=== PATIENT | female | born 1980 | race Caucasian/White ===

== ENCOUNTER 2020-01-06 15:30 | Outpatient (CLI) | payer OTHER, SELFPAY ==
--- NOTE | ~2020-01-06 | CT_ITS ---
EXAMINATION: CT abdomen pelvis w con INDICATION: Ventral hernia TECHNIQUE: Computed tomographic images of the abdomen and pelvis were obtained after the administrati on of 100 cc of Omnipaque 350 intravenous contrast. The dose-length product (DLP) was 1667.45 mGy-cm. Automated exposure control and iterative reconstruction technique were employed. COMPARISON: None available FINDINGS: The lung bases are clear. The heart size is normal. The liver is diffusely low in attenuati on when compared with the spleen, consistent with hepatic steatosis. The gallbladder is surgically ab sent. The spleen, pancreas, adrenal glands, and right kidney are normal. There is a 6.1 cm exophytic cyst of the left kidney. There is a large infraumbilical ventral hernia contains the distal stomach, the entire small bowel beyond the proximal jejunum, and the entire colon to the level of the distal s igmoid colon. There is no free intraperitoneal gas or evidence of bowel obstruction. No pathologicall y enlarged abdominal or pelvic lymph nodes are identified. There is mild lumbar spondylosis. IMPRESSION: 1. Large infraumbilical hernia containing part of the stomach and the bowel from the proximal jejunum through the distal sigmoid colon. 2. Diffuse hepatic steatosis. Reviewed, dictated and finalized at location A. IMPRESSION: 1. Large infraumbilical hernia containing part of the stomach and the bowel fro m the proximal jejunum through the distal sigmoid colon. 2. Diffuse hepatic steatosis.
[2020-01-06 16:03] LABS: Estimated Glomerular Filt Rate > 60
== END 2020-01-06 15:31 | disposition home or self-care (01) ==
PROVIDERS: Visit Provider Obstetrics & Gynecology
DX: K43.9 Ventral hernia without obstruction or gangrene (principal); K76.0 Fatty (change of) liver, not elsewhere classified
CPT/HCPCS: 74177; Q9967

== ENCOUNTER 2020-08-03 15:28 | Emergency (ER) | payer OTHER, SELFPAY ==
--- NOTE | ~2020-08-03 | CT_ITS ---
EXAMINATION: CTA brain carotid DATE: 08/03/2020 18:34 CDT INDICATION: Headache TECHNIQUE: Computed tomographic angiography (CTA) of the head was performed without and with 100 mL O mnipaque-350 intravenous contrast. CTA of the neck was performed with intravenous contrast. The dose- length product was 1864.36 mGy-cm. Maximum intensity projection and volume rendered 3D-reconstruction s were created by the technologist on a separate workstation. COMPARISON: CT dated 05/24/2015. FINDINGS: HEAD CT/CTA: No acute intracranial hemorrhage, infarction, mass or mass effect. No ventriculomegaly o r midline shift. Normal mars-white differentiation. Basilar cisterns are patent. Paranasal sinuses an d mastoids are pneumatized. Intracranial arteries including the internal carotid arteries, anterior, middle and posterior cerebral arteries are within normal limits without evidence for stenosis, occlus ion or aneurysm. NECK CTA: There is normal contrast opacification of the common, internal and external carotid arterie s without significant atherosclerotic change. The vertebral arteries are codominant. No evidence for significant stenosis, occlusion, dissection or aneurysm. There is a 12 mm low-density lesion right th yroid lobe. Visualized lung parenchyma is unremarkable. There is 0% stenosis of the proximal right internal carotid artery relative to normal distal artery l umen diameter (NASCET criteria). There is 0% stenosis of the proximal left internal carotid artery re lative to normal distal artery lumen diameter. IMPRESSION: 1: No acute intracranial abnormality. No significant vascular abnormality of the neck or intracranial arteries. Reviewed, dictated and finalized at location A. IMPRESSION: 1: No acute intracranial abnormality. No significant vascular abnormality of th e neck or intracranial arteries.
[2020-08-03 15:30] VITALS: BP 137/79; PULSE 96; RESP 17; TEMP 36.2; O2SAT 100
[2020-08-03 17:20] VITALS: BP 123/69; PULSE 85; RESP 13; O2SAT 95
[2020-08-03 17:29] LABS: Glucose Point of Care 125 (65-105)
[2020-08-03] MEDS: FAMOTIDINE 20 MG/2 ML VIAL IV PUSH (17:36)
[2020-08-03] MEDS: SODIUM CHLORIDE 0.9% IV 1,000 ML 999 ML IV CONT (17:36)
[2020-08-03] MEDS: METOCLOPRAMIDE HCL INJ 10 MG/2 ML VIAL IV PUSH (17:37)
--- NOTE | 2020-08-03 17:59 | ED.GENADULT ---
HPI - General Adult General Chief complaint: Headache Stated complaint: headache Time Seen by Provider: 08/03/20 16:02 Source: patient Mode of arrival: ambulatory Limitations: no limitations History of Present Illness HPI narrative: Patient is a 40-year-old female who presents with sudden onset headache that occurred while at home patient noted sharp stabbing sudden headache which has been persistent with associated photophobia and phonophobia. Patient notes that she has historically been on migraine medications but is currently not taking any as she is transitioning between primary care doctors. 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 Patient notes she did have an episode of emesis in route. Patient has not taken anything other than some home narcotic for her symptoms and has persistent headache. Patient denies injury trauma recent illness or other complaints. Patient presents to emergency department per private vehicle. Patient has not been seen for this complaint Related Data Home Medications Medication Instructions Recorded Confirmed insulin glargine [Basaglar KwikPen 34 unit SUBCUT BID 03/03/19 03/03/19 U-100 Insulin] insulin lispro [Admelog U-100 30 unit SUBCUT TID 03/03/19 03/03/19 Insulin lispro] oxycodone-acetaminophen [Percocet] 1 tablet PO Q8H PRN 03/03/19 03/03/19 vit,diogenes [id number] See Rx Instructions .ROUTE .COMPLEX 03/03/19 03/03/19 [ Low Iron] Allergies Allergy/AdvReac Type Severity Reaction Status Date / Time sumatriptan Allergy Severe hives Verified 03/07/19 09:57 Penicillins Allergy Intermediate Hives / Verified 03/07/19 09:57 Red Face adhesive tape Allergy Mild Unknown Verified 03/07/19 09:57 erythromycin base Allergy Mild Nausea and Verified 03/07/19 09:57 Vomiting pecan nut Allergy Unknown Rash Verified 08/03/20 16:27 Review of Systems Review of Systems: All systems reviewed & are unremarkable except as noted in HPI and below PMFSH Family History Family History (System 03/07/19 @ 09:57 by Kathy Godfrey) Other Cerebrovascular accident Diabetes mellitus Social History Social History Smoking status: Current every day smoker Alcohol intake: never Gender identity (if verbalized by the patient): Female Exam Narrative: Exam Narrative: GENERAL: Well-appearing, obese, and in no acute distress. HEAD: Normocephalic, atraumatic. EYES: PERRLA and EOMI. ENT: Nares clear, no rhinorrhea or epistaxis. Mucous membranes moist. NECK: Supple. No adenopathy or masses. CHEST: Clear to auscultation. No respiratory distress. No wheezes rales or rhonchi HEART: Regular rate and rhythm. No murmur heard. Normal peripheral pulses. ABDOMEN: Soft, nontender, nondistended EXTREMITIES: Normal range of motion. No edema. SKIN: Warm, dry, no rash. NEURO: No focal deficits. Alert and oriented x3. Cranial nerves II through XII grossly intact. Normal speech. Normal gait PSYCH: Normal mood and affect. Course Course Emergency Course: Patient was medically treated in the emergency department with marked improvement in her condition there was no high risk changes in the imaging or blood work patient will be discharged home with outpatient follow-up. Patient agrees with this plan ABCs and vital signs intact and stable Vital Signs Vital signs: Vital Signs Temperature 97.2 F L 08/03/20 15:30 Pulse Rate 96 08/03/20 15:30 Respiratory Rate 17 08/03/20 15:30 Blood Pressure 137/79 08/03/20 15:30 Pulse Oximetry 100 08/03/20 15:30 Temperature 97.2 F L 08/03/20 15:30 Pulse Rate 77 08/03/20 19:33 Respiratory Rate 18 08/03/20 19:33 Blood Pressure 141/64 H 08/03/20 19:33 Pulse Oximetry 96 08/03/20 19:33 Medical Decision Making MDM Narrative Medical decision making narrative: Patients headache was n
[2020-08-03 18:02] LABS: Basophils Absolute Auto 0.1 K/mm3 (0.0-0.1); Basophils Percent Auto 0.5 % (0.2-1.2); Eosinophils Absolute Auto 0.1 K/mm3 (0-0.3); Eosinophils Percent Auto 1.2 % (0-4.4); Hematocrit 41.8 % (37.0-47.0); Hemoglobin 14.3 g/dL (12.0-15.0); Immature Granulocyte Absolute 0.07 K/mm3 (0.00-0.031); Immature Granulocyte Percent A 0.6 % (0-0.5); Lymphocytes Absolute Auto 1.71 K/mm3 (0.9-3.2); Lymphocytes Percent Auto 15.6 % (18.3-44.2); Mean Corpuscular HGB Conc 34.2 g/dl (32-36); Mean Corpuscular Hemoglobin 31.4 pg (26-34); Mean Corpuscular Volume 91.9 fl (80-100); Mean Platelet Volume 11.3 fl (7.4-10.4); Monocytes Absolute Auto 0.8 K/mm3 (0.1-0.6); Monocytes Percent Auto 6.9 % (2.6-8.5); Neutrophils Absolute Auto 8.2 K/mm3 (1.3-6.7); Neutrophils Percent Auto 75.2 % (45.5-73.1); Platelet Count Result 249 k/mm3 (150-375); Red Blood Count 4.55 M/mm3 (4.2-5.4); White Blood Count 10.9 K/mm3 (4.5-10.0)
[2020-08-03 18:05] LABS: Estimated CRCL calculation 178 ml/min; Estimated Glomerular Filt Rate > 60
[2020-08-03 18:11] LABS: Add Urine Microscopic? YES; Appearance Urine Cloudy (Clear); Bacteria Urine Trace /hpf; Bilirubin Urine Negative (Negative); Blood Urine Negative (Negative); Color Urine Yellow (Yellow); Glucose Urine UA Negative (Negative); Ketones Urine Negative (Negative); Leukocyte Esterase Ur Negative LEU/UL (Negative); Mucus Urine Rare /lpf; Nitrate Urine Negative (Negative); Protein Urine 2+ mg/dL (Negative); RBC Urine 0-2 /hpf (0-2); Specific Grav Ur 1.016 (1.001-1.035); Squamous Epithelial Cell Urine Few /hpf (Few); Urobilinogen Urine Negative mg/dL (<2.0); WBC Urine 0-3 /hpf
[2020-08-03 18:16] LABS: INR 0.9; Partial Thromboplastin Time 24.6 SECONDS (22.3-36.8); Prothrombin Time 12.6 Seconds (11.1-14.7)
[2020-08-03] MEDS: KETOROLAC 30 MG/ML VIAL (*BKC) IV PUSH (19:27)
[2020-08-03 19:33] VITALS: BP 141/64; PULSE 77; RESP 18; O2SAT 96
[2020-08-03 21:01] VITALS: BP 136/88; PULSE 89; RESP 18; O2SAT 98
== END 2020-08-03 21:02 | disposition home or self-care (01) ==
PROVIDERS: Emergency Medicine Emergency Medical Services; Emergency Provider Emergency Medicine
DX: R51.9 Headache, unspecified (principal); F17.200 Nicotine dependence, unspecified, uncomplicated; Z79.4 Long term (current) use of insulin
CPT/HCPCS: 36415; 70496; 70498; 81001; 81025; 82948; 85025; 85610; 85730; 96361; 96365; 96375; 99284; J0131; J1885; J2765; J7030; Q9967

== ENCOUNTER 2021-01-18 16:02 | Emergency (ER) | payer OTHER, SELFPAY ==
[2021-01-18 16:20] VITALS: BP 146/88; PULSE 103; RESP 20; TEMP 37.2; O2SAT 99
--- NOTE | 2021-01-18 17:20 | ED.SKABFB ---
HPI - Skin/Abscess/Foreign Bdy General Chief complaint: Skin/Abscess/Foreign Body Stated complaint: Blister on abdomen Time Seen by Provider: 01/18/21 17:06 Source: patient and RN notes reviewed Mode of arrival: ambulatory Limitations: no limitations History of Present Illness HPI narrative: Patient presents today complaining of a wound to the right lower abdomen. States she does not have sensation to this area due to previous C-sections and does not know how long its been there, but noted it last night. Denies any known drainage. Denies pain. MD complaint: lesion Related Data Home Medications Medication Instructions Recorded Confirmed insulin lispro [Admelog U-100 30 unit SUBCUT TID 03/03/19 01/18/21 Insulin lispro] insulin glargine [Lantus Solostar 30 unit SUBCUT BID 01/18/21 01/18/21 U-100 Insulin] liraglutide [Victoza 3-Michael] 18 mg SUBCUT DAILY 01/18/21 01/18/21 Allergies Allergy/AdvReac Type Severity Reaction Status Date / Time sumatriptan Allergy Severe hives Verified 01/18/21 16:49 Penicillins Allergy Intermediate Hives / Verified 01/18/21 16:49 Red Face adhesive tape Allergy Mild Unknown Verified 01/18/21 16:49 erythromycin base Allergy Mild Nausea and Verified 01/18/21 16:49 Vomiting pecan nut Allergy Unknown Rash Verified 01/18/21 16:49 Review of Systems Review of Systems: CONSTITUTIONAL: Denies body aches, fever, chills, or sweats. EYES: Denies visual changes, redness, or discharge. ENT: Denies rhinorrhea, congestion, sore throat, or otalgia. CARDIOVASCULAR: Denies chest pain, palpitations, or edema. RESPIRATORY: Denies cough or dyspnea. GASTROINTESTINAL: Denies abdominal pain, nausea, vomiting, or diarrhea. GENITOURINARY: Denies dysuria or hematuria. SKIN: Denies rash, itching. + Lesion to right lower abdomen MUSCULOSKELETAL: Denies back pain, joint pain, or myalgia. NEUROLOGIC: Denies headache, numbness, tingling, or weakness. PSYCH: Denies depression or anxiety. [facility] Past Medical History Medical History (Updated 01/18/21 @ 17:24 by Lisseth Seymour, [facility], ) Delivery with history of Family History Family History (System 03/07/19 @ 09:57 by Kathy Godfrey) Other Cerebrovascular accident Diabetes mellitus Social History Social History Smoking status: Current every day smoker Alcohol intake: never Gender identity (if verbalized by the patient): Female Comments At time of signature, I have reviewed and agree with nursing past medical, surgical, social and family history unless otherwise noted. Please see nursing chart for further information. There is no relevant family history pertinent to the presenting complaint Exam Narrative: GENERAL: Well-appearing, well-nourished, and in no acute distress. HEAD: Normocephalic, atraumatic. EYES: EOMI. No redness or drainage. Conjunctivae normal. ENT: Mucous membranes pink and moist.. NECK: Normal AROM. CHEST: No respiratory distress. EXTREMITIES: Normal range of motion. No edema. SKIN: Warm, dry, no rash. Capillary refill normal. Normal skin turgor. 1 x 2 cm healing abscess to the right lower abdomen at the skin fold. No erythema noted. There was some slight fluctuance. Open area that previously possibly drained some material. NEURO: No focal deficits. Alert and oriented x3. Gait steady. PSYCH: Normal affect. No signs of depression or anxiety. Course Vital Signs Vital signs: Vital Signs Temperature 98.9 F 01/18/21 16:20 Pulse Rate 103 H 01/18/21 16:20 Respiratory Rate 20 01/18/21 16:20 Blood Pressure 146/88 H 01/18/21 16:20 Pulse Oximetry 99 01/18/21 16:20 Temperature 98.9 F 01/18/21 16:20 Pulse Rate 103 H 01/18/21 16:20 Respiratory Rate 20 01/18/21 16:20 Blood Pressure 146/88 H 01/18/21 16:20 Pulse Oximetry 99 01/18/21 16:20 Reviewed. Pt has been instructed to follow up with her PCP regarding her
== END 2021-01-18 17:26 | disposition home or self-care (01) ==
PROVIDERS: Emergency Provider Nurse Practitioner
DX: L02.211 Cutaneous abscess of abdominal wall (principal); F17.200 Nicotine dependence, unspecified, uncomplicated; E11.9 Type 2 diabetes mellitus without complications; M19.90 Unspecified osteoarthritis, unspecified site
CPT/HCPCS: 10160; 99212; G0463